=== PATIENT | female | born 1945 | race Caucasian/White ===

== ENCOUNTER 2022-01-29 08:59 | Outpatient (CLI) | payer MEDICARE, SELFPAY ==
--- NOTE | 2022-01-29 09:03 | AAVD_ITS ---
Reason For Study: Aortic dissection Aorta Measurements Aorta Doppler Measurements Proximal aorta measures1.47 x 1.44cm. in cross- Peak systolic flow velocities within the proximal sectional axis. aorta measure 96.4 cm/sec. Proximal aorta measures1.48cm. in longitudinal Peak systolic flow velocities within the mid aorta axis. measure 165.6 cm/sec. Mid aorta measures1.40 x 1.40cm. in cross- Peak systolic flow velocities within the distal sectional axis. aorta measure 126.4 cm/sec. Mid aorta measures1.38cm. in longitudinal axis. Distal aorta measures1.56 x 1.56cm. in cross- sectional axis. Distal aorta measures1.58cm. in longitudinal axis. Left Iliac Artery Unable to visualize left iliac artery due to bowel gas. Right Iliac Artery Right iliac artery measures 0.96 x 0.96 cm. in the cross-sectional axis. Right iliac artery measures 1.00 cm. in the longitudinal axis. Peak systolic velocity in the right iliac artery measures 93.8 cm/sec. Procedure Aorta IVC Iliac vasculature or bypass grafts 14472. Technically difficult study due to patient body habitus and bowel gas. Unable to assess for dissection. Exam performed in department. VL/Abd Aortic/IVC Duplex scan Interpretation Summary Aorta iliac no evidence of stenosis or aneurysm visualized. Left iliac unable t o be visualized. Ordering Physician: Brandan Epstein Referring Physician: Aria Gandhi Performed By: Tonya Renee RVT
== END 2022-01-29 23:59 | disposition home or self-care (01) ==
PROVIDERS: PCP Nurse Practitioner Primary Care; Referring Provider Surgery Vascular Surgery; Visit Provider Surgery Vascular Surgery
DX: I71.00 Dissection of unspecified site of aorta (principal); I77.79 Dissection of other specified artery
CPT/HCPCS: 93978